=== PATIENT | male | born 1950 | race Caucasian/White ===

== ENCOUNTER → 2016-09-16 | Outpatient (CLI) | payer MEDICARE, BC ==
[~2016-09-16] MED LIST: ALLEGRA 180MG180 MG PO; AMBIEN 10MG10 MG PO; ANTI-DIARRHEAL2 MG PO; ASPIRIN 81M81 MG/TA2 PO; ASTELIN NASAL S34 ML NAS; ATIVAN 0.50.5 MG/TAB PO; BUSPAR DIVIDOSE15 MG PO; COUMADIN 1010 MG/TAB PO; COUMADIN 1MG1 MG/TAB PO; COUMADIN 77.5 MG/TAB PO; CRESTOR5 MG PO; DESYREL 50MG50 MG PO; FLOMAX 0.40.4 MG/CAP PO; GLUCOPHAGE500 MG/TAB PO; IMODIUM 2MG CAPS2 MG PO; LANTUS SOLOS100 U/ML SQ; LEVEMIR SQ; LIPITOR 10MG10 MG PO; LIPITOR20 MG PO; LOMOTIL 0.025 M1 TAB PO; LOVENOX 100100 MG/ML SQ; NORCO 325 MG-51 TAB PO; NORCO 325 MG-7.1 TAB PO; NORVASC 10MG10 MG PO; PRINIVIL10 MG PO; PROGRAF 1MG1 MG PO; PROZAC 20MG20 MG PO; ROBITUSSIN100 MG/5 M PO; ROXICODONE 55 MG/TAB PO; TOPROL XL 50MG50 MG PO; VIIBRYD40 MG PO; WELLBUTRIN 75MG75 MG PO; ZOLOFT 100MG100 MG PO; norvasc; toprol
== END ==
LOC: BHSO 13:05
DX: F33.42 Major depressive disorder, recurrent, in full remission (principal)

== ENCOUNTER → 2016-10-01 10:01 | Outpatient (RCR) | payer MEDICARE, BC | END | disposition home or self-care (01) | LOC: WSPT 10:00 | DX: M48.06 Spinal stenosis, lumbar region (principal); M75.121 Complete rotator cuff tear or rupture of right shoulder, not specified as traumatic ==

== ENCOUNTER → 2016-11-11 | Outpatient (CLI) | payer MEDICARE, BC | LOC: BHSO 10:47 | DX: F33.41 Major depressive disorder, recurrent, in partial remission (principal) ==

== ENCOUNTER 2016-12-15 16:15 | Outpatient (RCR) | payer MEDICARE, BC | END 2016-12-16 | disposition home or self-care (01) | LOC: WSPT | DX: M48.05 Spinal stenosis, thoracolumbar region (principal) | CPT/HCPCS: G8978-GP; G8979-GP; G8984-GP; G8985-GP ==

== ENCOUNTER → 2017-01-11 | Outpatient (CLI) | payer MEDICARE, BC | LOC: BHSO 10:50 | DX: F33.42 Major depressive disorder, recurrent, in full remission (principal) ==

== ENCOUNTER 2017-01-26 10:00 | Outpatient (RCR) | payer MEDICARE, BC | END 2017-01-29 10:55 | disposition home or self-care (01) | LOC: WSPT 10:00 | DX: M75.121 Complete rotator cuff tear or rupture of right shoulder, not specified as traumatic (principal) | CPT/HCPCS: G8978-GP; G8979-GP; G8980-GP ==

== ENCOUNTER → 2017-04-12 | Outpatient (CLI) | payer MEDICARE, BC | LOC: BHSO 10:00 | DX: F33.42 Major depressive disorder, recurrent, in full remission (principal) ==

== ENCOUNTER → 2017-07-12 | Outpatient (CLI) | payer MEDICARE, BC | LOC: BHSO 10:45 | DX: F41.1 Generalized anxiety disorder (principal) ==

== ENCOUNTER 2018-01-06 22:06 | Emergency (ER) | payer MEDICARE, BC ==
[~2018-01-06] VITALS: Ht 175.3 cm; Wt 95.5 kg
[2018-01-06 22:15] VITALS: BP 154/86; TEMP 98.2
[2018-01-06] MEDS ORDERED: COUMADIN 5MG5 MG/TAB PO (23:03)
[2018-01-06] MEDS ORDERED: NICODERM C21 MG/PATC TD (23:04)
[2018-01-06] MEDS ORDERED: ASPIRIN 81M81 MG/TA2 PO (23:04)
[2018-01-06] MEDS ORDERED: COZAAR 50MG50 MG/TAB PO (23:04)
[2018-01-06] MEDS ORDERED: MULTI VITAMINS1 TAB PO (23:05)
[2018-01-07] MEDS ORDERED: CEPHALEXIN500 M1 PO (01:19)
[2018-01-07 01:38] VITALS: PULSE 84
== END 2018-01-07 01:39 | disposition home or self-care (01) ==
LOC: COL.ER 22:06
DX: S60.451A Superficial foreign body of left index finger, initial encounter (principal); E11.9 Type 2 diabetes mellitus without complications; I10 Essential (primary) hypertension; I25.10 Atherosclerotic heart disease of native coronary artery without angina pectoris; F17.210 Nicotine dependence, cigarettes, uncomplicated; Z23 Encounter for immunization; Z94.4 Liver transplant status; Z79.4 Long term (current) use of insulin; Z79.01 Long term (current) use of anticoagulants; Z79.82 Long term (current) use of aspirin; W45.8XXA Other foreign body or object entering through skin, initial encounter; Y92.89 Other specified places as the place of occurrence of the external cause

== ENCOUNTER → 2018-01-20 | Outpatient (CLI) | payer MEDICARE, BC ==
[~2018-01-20] MED LIST changes: +CEPHALEXIN500 M1 PO; +COUMADIN 5MG5 MG/TAB PO; +COZAAR 50MG50 MG/TAB PO; +MULTI VITAMINS1 TAB PO; +NICODERM C21 MG/PATC TD
== END ==
LOC: BHSO 11:28
DX: F41.1 Generalized anxiety disorder (principal)
CPT/HCPCS: G0463

== ENCOUNTER → 2018-05-12 | Outpatient (CLI) | payer MEDICARE, BC ==
[~2018-05-12] MED LIST changes: +NICODERM C14 MG/PATC TD; -NICODERM C21 MG/PATC TD
== END ==
LOC: SUN.DIA 10:19
DX: E11.9 Type 2 diabetes mellitus without complications (principal); E78.5 Hyperlipidemia, unspecified; I10 Essential (primary) hypertension; F17.210 Nicotine dependence, cigarettes, uncomplicated; Z79.4 Long term (current) use of insulin
CPT/HCPCS: G0108

== ENCOUNTER → 2018-07-13 | Outpatient (CLI) | payer MEDICARE, BC | LOC: BHSO 11:25 | DX: F41.1 Generalized anxiety disorder (principal) | CPT/HCPCS: G0463 ==

== ENCOUNTER → 2018-09-06 | Outpatient (CLI) | payer MEDICARE, BC | LOC: COL.RAD 13:22 | DX: J43.9 Emphysema, unspecified (principal); R91.1 Solitary pulmonary nodule; Z87.891 Personal history of nicotine dependence; Z95.2 Presence of prosthetic heart valve ==

== ENCOUNTER → 2018-11-22 | Outpatient (CLI) | payer MEDICARE, BC | LOC: SUN.DIA 11-16 10:41 | DX: E11.9 Type 2 diabetes mellitus without complications (principal); Z79.4 Long term (current) use of insulin; E78.5 Hyperlipidemia, unspecified; I10 Essential (primary) hypertension; F17.210 Nicotine dependence, cigarettes, uncomplicated | CPT/HCPCS: G0270 ==

== ENCOUNTER → 2019-01-10 | Outpatient (CLI) | payer MEDICARE, BC | LOC: BHSO 11:05 | DX: F41.1 Generalized anxiety disorder (principal) | CPT/HCPCS: G0463 ==

== ENCOUNTER 2019-05-17 13:30 | Outpatient (RCR) | payer MEDICARE, BC | END 2019-06-07 13:28 | disposition home or self-care (01) | LOC: WSPT 13:30 | DX: M75.101 Unspecified rotator cuff tear or rupture of right shoulder, not specified as traumatic (principal) | CPT/HCPCS: G0283-GP ==

== ENCOUNTER → 2019-05-23 | Outpatient (CLI) | payer MEDICARE, BC | LOC: DIA.ED 12:56 | DX: E11.9 Type 2 diabetes mellitus without complications (principal); E78.5 Hyperlipidemia, unspecified; I10 Essential (primary) hypertension; Z79.4 Long term (current) use of insulin | CPT/HCPCS: G0270 ==

== ENCOUNTER → 2019-05-24 | Outpatient (CLI) | payer MEDICARE, BC | LOC: MHCPAIN 14:14 | DX: G89.29 Other chronic pain (principal); M47.812 Spondylosis without myelopathy or radiculopathy, cervical region; R51 Headache; M54.81 Occipital neuralgia | CPT/HCPCS: G0463 ==

== ENCOUNTER → 2019-06-07 | Outpatient (CLI) | payer MEDICARE, BC | LOC: MHCPAIN 10:15 | DX: M54.81 Occipital neuralgia (principal) | CPT/HCPCS: J1040 ==

== ENCOUNTER → 2019-07-12 | Outpatient (CLI) | payer MEDICARE, BC | LOC: BHSO 13:24 | DX: F41.1 Generalized anxiety disorder (principal) | CPT/HCPCS: G0463 ==

== ENCOUNTER 2020-09-25 18:52 | Emergency (ER) | payer MEDICARE, BC ==
[~2020-09-25] VITALS: Ht 177.8 cm; Wt 90.9 kg
[2020-09-25 19:05] VITALS: TEMP 97.1
[2020-09-25 20:30] LABS: BASO % 0.2 % (0.0-2.0); EOS % 0.3 % (0-4.0); GRAN # 10.7 (1.4-6.5); GRAN % 82.6 % (42.2-75.2); HEMOGLOBIN 14.9 g/dl (13.5-18.0); LYMPH # 1.5 (1.2-3.4); LYMPH % 11.3 % (20.0-51.0); MEAN CELL VOLUME 93 fl (80.0-100.0); MEAN CORPUSCULAR HEMOGLOBIN 31 pg (27.0-31.0); MEAN CORPUSCULAR HGB CONC 34 g/dl (33.0-37.0); MEAN PLATELET VOLUME 9.7 fl (7.4-10.4); MONO # 0.7 (0.1-0.6); MONO % 5.1 % (1.7-9.3); PLATELET COUNT 176 K/mm3 (130-400); RED BLOOD COUNT 4.74 M/mm3 (4.20-5.60); REDCELL DISTRIBUTION WIDTH-CV 14.4 % (11.5-14.5)
[2020-09-25 20:57] LABS: ALBUMIN 4.5 gm/dL (3.5-5.0); BILIRUBIN,TOTAL 0.8 mg/dL (0.0-1.0); CALCIUM 9.3 mg/dL (8.4-10.2); CREATININE, serum 1.41 (0.66-1.25); POTASSIUM 4.2 mmol/L (3.4-5.0); TOTAL PROTEIN 7.5 gm/dL (6.4-8.2)
[2020-09-25 21:09] LABS: TROPONIN-I 0.026 ng/mL (0.000-0.035)
[2020-09-25] MEDS ORDERED: PERCOCET 325 MG1 TA2 PO (23:06)
[2020-09-25 23:29] VITALS: BP 191/93; PULSE 60
== END 2020-09-25 23:45 | disposition home or self-care (01) ==
LOC: COL.ER 18:52
PROVIDERS: Emergency Medicine
DX: M25.511 Pain in right shoulder (principal); I10 Essential (primary) hypertension; E11.9 Type 2 diabetes mellitus without complications; E78.5 Hyperlipidemia, unspecified; I25.10 Atherosclerotic heart disease of native coronary artery without angina pectoris; Z95.1 Presence of aortocoronary bypass graft; Z90.89 Acquired absence of other organs; Z95.4 Presence of other heart-valve replacement; Z79.01 Long term (current) use of anticoagulants; Z79.82 Long term (current) use of aspirin; Z79.4 Long term (current) use of insulin
CPT/HCPCS: J2270; J2405; J3360; J7030

== ENCOUNTER 2020-12-04 10:31 | Inpatient (IN) | payer MEDICARE, BC ==
[2020-12-04] VITALS (183 sets, daily range): BP systolic 112; BP diastolic 49; PULSE 90; TEMP 99.8; O2SAT 88–99
[~2020-12-04] VITALS: Ht 177.8 cm; Wt 95.8 kg
[~2020-12-04 10:31] MED LIST changes: +PERCOCET 325 MG1 TA2 PO
[2020-12-04 11:21] LABS: BASO % 0.7 % (0.0-2.0); EOS # 0.1 (0.0-0.7); EOS % 2.2 % (0-4.0); GRAN # 4.4 (1.4-6.5); GRAN % 75.6 % (42.2-75.2); LYMPH # 0.7 (1.2-3.4); LYMPH % 12.3 % (20.0-51.0); MEAN CELL VOLUME 96 fl (80.0-100.0); MEAN CORPUSCULAR HGB CONC 32 g/dl (33.0-37.0); MEAN PLATELET VOLUME 9.3 fl (7.4-10.4); MONO # 0.5 (0.1-0.6); MONO % 8.9 % (1.7-9.3); PLATELET COUNT 163 K/mm3 (130-400); RED BLOOD COUNT 2.46 M/mm3 (4.20-5.60); REDCELL DISTRIBUTION WIDTH-CV 13.7 % (11.5-14.5)
[2020-12-04 11:22] LABS: HEMATOCRIT 23.7 % (42.0-52.0); HEMOGLOBIN 7.5 g/dl (13.5-18.0); MEAN CORPUSCULAR HEMOGLOBIN 30 pg (27.0-31.0)
[2020-12-04 11:30] LABS: INR 2.7 (0.8-3.0); PROTHROMBIN TIME 30.4 SECONDS (9.7-12.8)
[2020-12-04 11:33] LABS: ALBUMIN 3.3 gm/dL (3.5-5.0); CALCIUM 8.3 mg/dL (8.4-10.2); CREATININE, serum 1.17 (0.66-1.25); PARTIAL THROMBOPLASTIN TIME 38.5 SECONDS (26.0-37.0); POTASSIUM 3.8 mmol/L (3.4-5.0); TOTAL PROTEIN 6.2 gm/dL (6.4-8.2)
[2020-12-04 11:49] LABS: TROPONIN-I 0.08 ng/mL (0.000-0.035)
[2020-12-04] MEDS ORDERED: ROXICODONE 55 MG/TAB PO (15:38)
[2020-12-04] MEDS ORDERED: PROTONIX 40MG T40 MG PO (15:38)
[2020-12-04] MEDS ORDERED: DESYREL 100MG100 MG PO (15:38)
[2020-12-04] MEDS ORDERED: LEXAPRO 10MG10 MG PO (15:39)
[2020-12-04] MEDS ORDERED: CRESTOR 10MG10 MG PO (15:39)
[2020-12-04] MEDS ORDERED: LOMOTIL 0.025 M1 TAB PO (15:40)
--- NOTE | 2020-12-04 17:30 | NUR ---
ASSUMED CARE AT THIS TIME FROM JASEN SILVA.
[2020-12-04 17:48] LABS: MAGNESIUM 1.7 mg/dL (1.6-2.3)
[2020-12-04 17:52] LABS: IRON,SERUM 19 ug/dL (35-150)
[2020-12-04 18:01] LABS: TOTAL IRON BINDING CAPACITY 246 ug/dL (261-462)
[2020-12-04 18:19] LABS: TSH w REFLEX 0.504 uIU/mL (0.465-4.680)
--- NOTE | 2020-12-04 18:20 | NUR ---
PAGED DR VERNON TO NOTIFY OF TROPONIN LEVEL AND DISCUSS AMIO GTT ORDERS. WAITING FOR CALL BACK.
--- NOTE | 2020-12-04 18:40 | NUR ---
NOTIFIED RICARDO DUNCAN OF TROPONIN TREND, ASKED ABOUT AMIO GTT. PHYSICIAN STATES TO KEEP AMIO GTT AT 1MG/MIN UNTIL CARDIOLOGY CALLS BACK AND MAYBE SAYS OTHERWISE. ALSO DISCUSSED WITH PROVIDER ABOUT PRBC ORDERED. LAB CALLED AND THEY DO NOT HAVE IRRADIATED ON HAND AND IF THEY NEED THE BLOOD NOW OR IF IT CAN BE TOMORROW MORNING. PHYSICIAN STATES NEED SOON POSSIBLE BECAUSE PT'S HR RYTHYM MAY BE RELATED TO LOW HGB. LAB NOTIFIED. PT AND UPDATED ON POC.
--- NOTE | 2020-12-04 19:56 | NUR ---
Nayeli gtt decreased per verbal order from Dr. Ventura
--- NOTE | 2020-12-04 20:40 | NUR ---
Assessment complete and charted. Right arm in brace. Reports pain. Given PRN oxycodone. Denies other needs. Call light in reach.
[2020-12-05] VITALS (340 sets, daily range): BP systolic 98–150; BP diastolic 40–85; PULSE 67–101; TEMP 98–99.6; O2SAT 80–100
--- NOTE | 2020-12-05 | NUR ---
Assessment complete and charted. Denies needs at this time. Call light in reach.
--- NOTE | 2020-12-05 00:15 | NUR ---
Patient temp 99.6. Clarified start of blood with Hanna SILVA, okay with starting blood.
--- NOTE | 2020-12-05 00:27 | NUR ---
Blood transfusion started at this time.
--- NOTE | 2020-12-05 02:50 | NUR ---
Blood transfusion ended at this time. Per Hanna SILVA draw H&H in 1 hour
--- NOTE | 2020-12-05 03:00 | NUR ---
Blood transfusion rates: started transfusion at 60ml/hr- remained at bedside for 15 min 0045: 90 ml/hr 0100: 110ml/hr 0130: 125ml/hr and for rest of transfusion
--- NOTE | 2020-12-05 04:11 | NUR ---
Assessment complete and charted. Given PRN oxycodone for pain at this time. Denies other needs. Call light in reach.
[2020-12-05 04:15] LABS: HEMATOCRIT 21.6 % (42.0-52.0); HEMOGLOBIN 7.1 g/dl (13.5-18.0)
[2020-12-05 05:44] LABS: HEMATOCRIT 19.5 % (42.0-52.0); HEMOGLOBIN 6.3 g/dl (13.5-18.0)
[2020-12-05 06:25] LABS: BASO # 0.1 (0.0-0.2); BASO % 0.8 % (0.0-2.0); EOS # 0.2 (0.0-0.7); EOS % 3.7 % (0-4.0); GRAN # 4.4 (1.4-6.5); GRAN % 71.1 % (42.2-75.2); LYMPH % 15.4 % (20.0-51.0); MEAN CELL VOLUME 93 fl (80.0-100.0); MEAN CORPUSCULAR HGB CONC 32 g/dl (33.0-37.0); MEAN PLATELET VOLUME 9.4 fl (7.4-10.4); MONO # 0.5 (0.1-0.6); MONO % 8.5 % (1.7-9.3); PLATELET COUNT 167 K/mm3 (130-400); RED BLOOD COUNT 2.36 M/mm3 (4.20-5.60); REDCELL DISTRIBUTION WIDTH-CV 16.1 % (11.5-14.5)
[2020-12-05 06:32] LABS: HEMATOCRIT 21.9 % (42.0-52.0); MEAN CORPUSCULAR HEMOGLOBIN 30 pg (27.0-31.0)
--- NOTE | 2020-12-05 06:32 | NUR ---
Patient required oxycodone for pain control during night. Remains on amio gtt. Received 1 unit of PRBC during night. Another unit ordered. Resting in bed this Am. call light in reach.
[2020-12-05 06:38] LABS: CALCIUM 7.9 mg/dL (8.4-10.2); CREATININE, serum 1.08 (0.66-1.25); POTASSIUM 3.6 mmol/L (3.4-5.0)
[2020-12-05 06:42] LABS: INR 2.7 (0.8-3.0); PROTHROMBIN TIME 30.8 SECONDS (9.7-12.8)
[2020-12-05 06:51] LABS: TROPONIN-I 0.054 ng/mL (0.000-0.035)
--- NOTE | 2020-12-05 07:00 | NUR ---
PT RESTING IN BED. PT'S VSS. PT HAS AMIO DRIP AT 0.5MG/HR. WILL CONTINUE TO MONITOR.
--- NOTE | 2020-12-05 07:00 | NUR ---
PT RESTING IN BED. PTS VSS. PT HAS AMIO DRIP AT 0.5MG/HR. WILL CONTINUE TO MONITOR.
[2020-12-05] MEDS ORDERED: PROGRAF 1MG1 MG PO (09:35)
[2020-12-05] MEDS ORDERED: COUMADIN 5MG5 MG/TAB PO (09:37)
--- NOTE | 2020-12-05 09:46 | NUR ---
Plan is to return home with support from spouse. SW met with patient in room and with Matt . Alternate contact is Dtr in [facility] Fan [facility] . reports that the PCP is Dr. Griggs, indicated that the patient works with other specialist at [facility], Dr. Zhao for Cardio. Dr. Sloane Rahman, Dr. Jules, Dr. Sauer, and locally Dr. Serrano. Patients preferred pharmacy is [facility]. Patient obtains medications without difficulty. Patient reports that prior to this he was independent and hoping to work back up to the status. Patient denies any use of DME other than arm and shoulder sling. Patient shares that he had advanced directives and gave a copy when arrived. is DPOA. will transport home. Declines the use of [facility]. WIll continue to follow for any care plan changes.
--- NOTE | 2020-12-05 10:51 | NUR ---
PT DESATS TO 85 WHILE SLEEPING BUT DOES RETURN TO 94. PT PLACED ON 2L NC WHILE SLEEPING
--- NOTE | 2020-12-05 15:58 | NUR ---
1540-PRABHU RN NOTIFIED OF BLOOD COMPLETION. WILL BRING PT UP TO ROOM 319. 1550- PT WHEELED UP TO ROOM 319. PT STOOD AND TRANSFERED TO BED. PT ORIENTED TO ROOM AND FLOOR. CALL LIGHT AND PHONE GIVEN TO PT. PT INSTRUCTED TO CALL WITH ALL NEEDS AND NOT TO GET UP WITHOUT ASSISTANCE. PRABHU [employer] STUDENT MARIBEL NOTIFIED OF PTS ARRIVAL.
--- NOTE | 2020-12-05 17:00 | NUR ---
Patient arrived to Medical floor room 319 around this time, alert/oriented, vital sign stable, pain rated 5 in right shoulder/ treating with Oxycodone PRN, arm in sling/ brusing noted, heart RRR/SR on tele, present at bedside, denies needs
[2020-12-05 17:59] LABS: HEMATOCRIT 25.2 % (42.0-52.0); HEMOGLOBIN 8.2 g/dl (13.5-18.0)
--- NOTE | 2020-12-05 18:56 | NUR ---
Received report from Michael. Patient awake in bed, at bedside. He is waiting for his dinner tray. No other needs at this time.
--- NOTE | 2020-12-05 21:00 | NUR ---
Assesment done. Patient is alert and oriented. He has right arm sling. Right shoulder has ecchymosis and surgical site is covered with dressing, CDI. PICC line flushed and with blood return. He is on room air. He reports pain on his shoulder with pain score of 6/10. Oxycodone given.
[2020-12-06 00:17] VITALS: BP 142/54; PULSE 70; TEMP 98.7
[2020-12-06 05:00] VITALS: BP 156/53; PULSE 71; TEMP 98.7
[2020-12-06 06:01] LABS: BASO % 0.5 % (0.0-2.0); EOS # 0.2 (0.0-0.7); EOS % 3.6 % (0-4.0); GRAN # 4.7 (1.4-6.5); GRAN % 71.9 % (42.2-75.2); LYMPH % 15.2 % (20.0-51.0); MEAN CELL VOLUME 93 fl (80.0-100.0); MEAN CORPUSCULAR HGB CONC 33 g/dl (33.0-37.0); MEAN PLATELET VOLUME 9.6 fl (7.4-10.4); MONO # 0.5 (0.1-0.6); PLATELET COUNT 193 K/mm3 (130-400); RED BLOOD COUNT 2.67 M/mm3 (4.20-5.60)
[2020-12-06 06:08] LABS: HEMATOCRIT 24.9 % (42.0-52.0); HEMOGLOBIN 8.2 g/dl (13.5-18.0); MEAN CORPUSCULAR HEMOGLOBIN 31 pg (27.0-31.0)
[2020-12-06 06:09] LABS: CALCIUM 7.9 mg/dL (8.4-10.2); CREATININE, serum 1.12 (0.66-1.25); POTASSIUM 4.1 mmol/L (3.4-5.0)
--- NOTE | 2020-12-06 06:28 | NUR ---
Patient still with shoulder pain with pain score of 4-6/10. Oxycodone given. Latest hemoglobin is 8.2
[2020-12-06 07:58] LABS: INR 2.1 (0.8-3.0)
[2020-12-06 07:59] VITALS: BP 151/78; PULSE 81; TEMP 98.1
--- NOTE | 2020-12-06 08:56 | NUR ---
Patient alert and oriented, answers questions appropriately. See assessment. Lungs CTA, respers even and unlabored. No c/o SOA at rest or with exertion. Oxygen at 1l/nc. RUE in immobilizer per previous RTS reversal. Dressing to RUE with scant amount of drainage noted, redness and eccymosis noted around dressing, no warmth noted. Radial pulses palpable, no numbness or tingling, hand local company hazmat driver equal. No c/o at this time.
[2020-12-06] MEDS ORDERED: FERROUS SU325 MG/TAB PO (09:41)
[2020-12-06] MEDS ORDERED: COUMADIN 5MG5 MG/TAB PO (09:41)
--- NOTE | 2020-12-06 09:49 | NUR ---
Facial Operator attended clinical rounds with the team. The patient's son is present. PT is recommending OP PT. Hospitalist discussed this option. The patient reports that [facility] physician has advised him to hold off on OP PT. The patient will await [facility] to give OP PT order.
[2020-12-06] MEDS ORDERED: PACERONE400 MG PO (10:17)
[2020-12-06 13:18] VITALS: BP 145/77; PULSE 71; TEMP 99.6
--- NOTE | 2020-12-06 13:33 | NUR ---
Discharge instructions reviewed with patient and spouse, verbalized understanding. Discharged via wheelchair to auto/home with spouse at 1330. Discharged with PICC in place per Drs order, planned blood transfusion in a.m.
--- NOTE | 2020-12-06 14:05 | NUR ---
Primary nurse was assisted with [phone] patient care by [employer] student Osmar Summers and [employer] instructor Savana Evans MSN, RN.
== END 2020-12-06 13:30 | disposition home or self-care (01) | DRG 281 ==
LOC: COL.ER 10:31 → ICU 14:39 → MEDICAL 12-05 16:34
PROVIDERS: Family Medicine; Physician Assistant; ADMIT Hospitalist
PROC: 02HV33Z Insertion of Infusion Device into Superior Vena Cava, Percutaneous Approach (ICD-10-PCS; principal; 2020-12-04)
DX: I48.0 Paroxysmal atrial fibrillation (principal); I21.A1 Myocardial infarction type 2; I50.32 Chronic diastolic (congestive) heart failure; Z94.4 Liver transplant status; I25.10 Atherosclerotic heart disease of native coronary artery without angina pectoris; D50.9 Iron deficiency anemia, unspecified; Z95.2 Presence of prosthetic heart valve; I11.0 Hypertensive heart disease with heart failure; E78.5 Hyperlipidemia, unspecified; J44.9 Chronic obstructive pulmonary disease, unspecified; N40.0 Benign prostatic hyperplasia without lower urinary tract symptoms; E11.9 Type 2 diabetes mellitus without complications; F32.9 Major depressive disorder, single episode, unspecified; K21.9 Gastro-esophageal reflux disease without esophagitis; G47.00 Insomnia, unspecified; Z96.611 Presence of right artificial shoulder joint; Z88.6 Allergy status to analgesic agent; Z88.8 Allergy status to other drugs, medicaments and biological substances; Z85.828 Personal history of other malignant neoplasm of skin; Z90.49 Acquired absence of other specified parts of digestive tract; Z79.82 Long term (current) use of aspirin; Z79.01 Long term (current) use of anticoagulants; Z79.4 Long term (current) use of insulin; Z87.891 Personal history of nicotine dependence
CPT/HCPCS: 99223-AI; 99232-AI; 99239; C1751; J0282; J1815; J2270; J7060; J7120; J7507; P9040; Q9967

== ENCOUNTER 2020-12-07 12:46 | Outpatient (RCR) | payer MEDICARE, BC ==
[~2020-12-07] VITALS: Ht 177.8 cm; Wt 87.1 kg
[~2020-12-07 12:46] MED LIST changes: +CRESTOR 10MG10 MG PO; +DESYREL 100MG100 MG PO; +FERROUS SU325 MG/TAB PO; +LEXAPRO 10MG10 MG PO; +PACERONE400 MG PO; +PROTONIX 40MG T40 MG PO
[2020-12-07 14:14] VITALS: BP 125/60; PULSE 65; TEMP 98.2
[2020-12-07 14:45] VITALS: BP 125/60; PULSE 65; TEMP 98.2
[2020-12-07 15:05] VITALS: BP 149/57; PULSE 63; TEMP 98.6
[2020-12-07 15:58] VITALS: BP 137/89; PULSE 63
--- NOTE | 2020-12-07 16:27 | NUR ---
Patient tolerated blood transfusion well, vital signs remained stable throughout, PICC line removed prior to discharge home, leaving with , I escorted him out via wheelchair
== END 2020-12-07 16:35 | disposition home or self-care (01) ==
LOC: EUO 12:46
DX: Z01.89 Encounter for other specified special examinations (principal)
CPT/HCPCS: P9040

== ENCOUNTER 2021-09-16 14:59 | Outpatient (CLI) | payer MEDICARE, BC ==
[2021-09-16 16:15] VITALS: BP 146/70; PULSE 75; TEMP 99.1
[2021-09-16] MEDS ORDERED: COUMADIN 5MG5 MG/TAB PO (16:25)
[2021-09-16 16:30] VITALS: BP 137/71; PULSE 71; TEMP 99.1
[2021-09-16 16:45] VITALS: BP 149/67; PULSE 71; TEMP 99.1
[2021-09-16 17:00] VITALS: BP 160/75; PULSE 69; TEMP 99.1
[2021-09-16 17:15] VITALS: BP 160/79; PULSE 67; TEMP 99.1
[2021-09-16 17:30] VITALS: BP 162/79; PULSE 67; TEMP 99.1
== END 2021-09-16 17:44 | disposition home or self-care (01) ==
LOC: COL.ER 14:59 → EUO 14:59 → EDSTATUS 16:20 → EUO 17:44
DX: U07.1 COVID-19 (principal); D84.9 Immunodeficiency, unspecified; J98.4 Other disorders of lung
CPT/HCPCS: M0247; Q0247

== ENCOUNTER 2021-10-12 11:01 | Emergency (ER) | payer MEDICARE, BC ==
[~2021-10-12] VITALS: Ht 175.3 cm; Wt 92.7 kg
[2021-10-12 11:11] VITALS: TEMP 98.5
[2021-10-12 11:39] LABS: BASO % 0.3 % (0.0-2.0); EOS % 0.2 % (0.0-4.0); GRAN # 9.4 K/mm3 (1.4-6.5); GRAN % 86.5 % (42.2-75.2); HEMATOCRIT 44.8 % (42.0-52.0); HEMOGLOBIN 14.5 g/dl (13.5-18.0); LYMPH # 0.8 K/mm3 (1.2-3.4); LYMPH % 7.1 % (20.0-51.0); MEAN CELL VOLUME 92 fl (80.0-100.0); MEAN CORPUSCULAR HEMOGLOBIN 30 pg (27-31); MEAN CORPUSCULAR HGB CONC 32 g/dl (33.0-37.0); MONO # 0.6 K/mm3 (0.1-0.6); MONO % 5.6 % (1.7-9.3); PLATELET COUNT 141 K/mm3 (130-400); RED BLOOD COUNT 4.88 M/mm3 (4.20-5.60); REDCELL DISTRIBUTION WIDTH-CV 13.9 % (11.5-14.5)
[2021-10-12] MEDS ORDERED: [UNRECOGNIZED DRUG - CODE] (11:45)
[2021-10-12] MEDS ORDERED: CIALIS2.5 MG PO (11:46)
[2021-10-12 11:58] LABS: ALBUMIN 4.2 gm/dL (3.4-4.8); BILIRUBIN,TOTAL 1.1 mg/dL (0.2-1.2); CALCIUM 9.2 mg/dL (8.4-10.2); CREATININE, serum 1.45 mg/dL (0.72-1.25); POTASSIUM 4.4 mmol/L (3.5-4.5); TOTAL PROTEIN 7.3 gm/dL (6.2-8.1)
[2021-10-12] MEDS ORDERED: FLEXERIL 1010 MG/TAB PO (12:51)
[2021-10-12] MEDS ORDERED: ROXICODONE 55 MG/TAB PO (12:51)
[2021-10-12 13:30] VITALS: BP 184/86; PULSE 67
== END 2021-10-12 13:53 | disposition home or self-care (01) ==
LOC: COL.ER 11:01
PROVIDERS: Student in an Organized Health Care Education/Training Program
DX: M26.601 Right temporomandibular joint disorder, unspecified (principal); I48.0 Paroxysmal atrial fibrillation; I25.10 Atherosclerotic heart disease of native coronary artery without angina pectoris; E78.5 Hyperlipidemia, unspecified; J44.9 Chronic obstructive pulmonary disease, unspecified; N40.0 Benign prostatic hyperplasia without lower urinary tract symptoms; E11.9 Type 2 diabetes mellitus without complications; I11.0 Hypertensive heart disease with heart failure; I50.33 Acute on chronic diastolic (congestive) heart failure; F32.A Depression, unspecified; K21.9 Gastro-esophageal reflux disease without esophagitis; Z79.899 Other long term (current) drug therapy; Z79.4 Long term (current) use of insulin; Z79.82 Long term (current) use of aspirin; Z79.01 Long term (current) use of anticoagulants
CPT/HCPCS: J2270; J3360; Q9967

== ENCOUNTER 2022-04-07 20:56 | Emergency (ER) | payer MEDICARE, BC ==
[~2022-04-07] VITALS: Ht 175.3 cm; Wt 90.9 kg
[~2022-04-07 20:56] MED LIST changes: +CIALIS2.5 MG PO; +FLEXERIL 1010 MG/TAB PO; +[UNRECOGNIZED DRUG - CODE]
[2022-04-07 23:46] VITALS: BP 149/73; PULSE 70; TEMP 98.6
== END 2022-04-07 23:46 | disposition home or self-care (01) ==
LOC: COL.ER 20:56
DX: S43.002A Unspecified subluxation of left shoulder joint, initial encounter (principal); Z88.5 Allergy status to narcotic agent; X58.XXXA Exposure to other specified factors, initial encounter
CPT/HCPCS: J2270

== ENCOUNTER 2022-04-13 01:59 | Inpatient (IN) | payer MEDICARE, BC ==
[~2022-04-13] VITALS: Wt 90.4 kg
[2022-04-13 02:42] LABS: HEMOGLOBIN 10.4 g/dl (13.5-18.0); MEAN CELL VOLUME 90 fl (80.0-100.0); MEAN CORPUSCULAR HEMOGLOBIN 30 pg (27-31); MEAN CORPUSCULAR HGB CONC 33 g/dl (33.0-37.0); MEAN PLATELET VOLUME 9.8 fl (7.4-10.4); PLATELET COUNT 159 K/mm3 (130-400); RED BLOOD COUNT 3.44 M/mm3 (4.20-5.60); REDCELL DISTRIBUTION WIDTH-CV 14.7 % (11.5-14.5)
[2022-04-13 02:44] LABS: INR 1.9 (0.8-3.0); PROTHROMBIN TIME 22.4 SECONDS (9.7-12.8)
[2022-04-13 02:54] LABS: LACTIC ACID 1.3 mmol/L (0.5-2.0)
[2022-04-13 02:59] LABS: ALBUMIN 2.8 gm/dL (3.4-4.8); BILIRUBIN,TOTAL 1.2 mg/dL (0.2-1.2); CALCIUM 8.4 mg/dL (8.4-10.2); CREATININE, serum 1.36 mg/dL (0.72-1.25); POTASSIUM 4.3 mmol/L (3.5-4.5); TOTAL PROTEIN 6.4 gm/dL (6.2-8.1)
[2022-04-13 03:04] LABS: HEMATOCRIT 31.1 % (42.0-52.0)
[2022-04-13 03:38] LABS: BAND 2 % (0-10); LYMPHOCYTE 4 % (20.0-51.0); NEUTROPHILS 90 % (42.0-75.2)
[2022-04-13 03:39] LABS: PLATELET ESTIMATE NORMAL (NORMAL)
[2022-04-13 04:12] LABS: COLLECTION METHOD CLEAN CATCH
[2022-04-13 04:26] LABS: PH 5.5 (5.0-8.5); URINE APPEARANCE Clear (CLEAR/HAZY); URINE BLOOD Negative (NEGATIVE); URINE COLOR Yellow (YELLOW); URINE GLUCOSE Negative (NEGATIVE); URINE KETONE Negative (NEGATIVE); URINE NITRATE Negative (NEGATIVE); URINE PROTEIN(semi-quant) 2+ (NEGATIVE)
[2022-04-13 04:27] LABS: MUCOUS Present (NOT PRESENT); SQUAMOUS EPITHELIAL None Seen /hpf (0-10); URINE BACTERIA None Seen /hpf (NONE SEEN); URINE RBC 0-2 /hpf (0-2)
[2022-04-13] MEDS ORDERED: NORVASC 10MG10 MG PO (04:58)
[2022-04-13] MEDS ORDERED: COREG 25MG25 MG/TAB PO (04:58)
[2022-04-13] MEDS ORDERED: HYDRALAZINE HC100 MG PO (04:59)
[2022-04-13] MEDS ORDERED: PREDNISONE20 MG PO (05:00)
[2022-04-13] MEDS ORDERED: IMDUR 60MG60 MG/TAB PO (05:00)
[2022-04-13] MEDS ORDERED: BACTRIM DS 8001 TAB PO (05:01)
[2022-04-13] MEDS ORDERED: NOVOLOG 100U100 U/M1 SQ (05:03)
[2022-04-13] MEDS ORDERED: LOVENOX 100100 MG/ML (05:04)
[2022-04-13] MEDS ORDERED: XIFAXAN550 MG PO (05:05)
[2022-04-13] MEDS ORDERED: CRESTOR 10MG10 MG PO (05:06)
[2022-04-13] MEDS ORDERED: DESYREL 100MG100 MG PO (05:07)
[2022-04-13 08:04] VITALS: BP 141/57; PULSE 97; TEMP 98.9
--- NOTE | 2022-04-13 08:58 | NUR ---
Patient admitted to room 351 from ED. Medications, allergies, and pharmacy reviewed. Admission paperwork completed. Patient states that he has "slight" pain in right shoulder. VSS. Patient A&O. Patient denies any further pain, discomfort, SOA, or needs at this time. Call light in reach.
--- NOTE | 2022-04-13 09:01 | NUR ---
Vancomycin Initial Dosing Pharmacy Note Ordering provider: Iker Gage MD Indication/duration: EMPIRIC Relevant comorbidities: LIVER TRANSPLANT FAILURE LABS: WBC 14.5, SCR 1.4, CRCL ~40, TMAX 102.3 Recommendation: VANCOMYCIN 17 MG/KG Loading dose: 2 grams Maintenance dose: 1.5 grams every 24 hours Trough goal: 15-20 ug/mL. TROUGH IF CLINICALLY INDICATED
[2022-04-13 11:10] VITALS: BP 129/55; PULSE 67; TEMP 99.8
--- NOTE | 2022-04-13 11:45 | NUR ---
Pt in semifowlers, requested pain medication for left shoulder stating that his pain level is at 6/10. Warmm blanket was offered and accepted. Medications were administeredper Emar. Physician notified that pt is in medical unit. Peripheral line in left hand CDI, no redness or edema. Right forearm INT CDI, no redness or edema. Tele on. Call light within reach.
--- NOTE | 2022-04-13 11:45 | NUR ---
Pt on semi fowlers, requested pain medication for left shoulder stating that his pain level is at 6/10. Warm blanket offered and medications were administered per Emar. Physician notified that pt is in medical unit. Call light within reach.
--- NOTE | 2022-04-13 13:22 | NUR ---
adz worker met with patient to complete intake and discuss discharge plan. Patient reports that he lives at home with his Matt ([phone]) in [place]. He is independent with his ADL's and does not utilize any DME to assist with mobility. Patient has no home oxygen needs. PCP is Dr. Griggs and he utilizes [facility] pharmacy for prescriptions. Patient reports that he does have a DPOA-HC established listing his Matt. Patient has previously had a liver transplant with Dr. Garces and Dr. Pearce from [facility]. He follows them. Patient may need transfer to later in the stay pending cultures. Discharge plan: Home* posiible transfer.
[2022-04-13 15:02] VITALS: BP 119/42; PULSE 64; TEMP 99
--- NOTE | 2022-04-13 16:14 | NUR ---
Pt in semifowlers, requested pain medication for left shoulder stating that his pain level is at 6/10. Warm blanket offered and medications were administered per Emar. Physician notified that pt is in medical unit. Peripheral line in Left hand, CDI, no redness or edema, INT on right forearm CDI, no redness or edema. Call light within reach.
--- NOTE | 2022-04-13 16:21 | NUR ---
Patricia: [facility] Situation: Clerk Of [address] went by room on rounds Background: PT was resting in bed with by his side. Assessment: PT has a few medical issues hitting all at once, Clerk Of [address] prayed with Pt and his , they both appreciated the visit. Recommendation: Clerk Of [address] will follow up as needed
--- NOTE | 2022-04-13 17:32 | NUR ---
Pt reported pain level didn't improve with oral pain medication and physician was notified. Received verbal orders to add IV pain medication on emar. Charge nurse notified. Patient's at bedside. Fluids running on left hand peripheral line. Pt denies any other need or concern besides pain on left shoulder. Call light within reach.
--- NOTE | 2022-04-13 18:16 | NUR ---
PRN MORPHINE GIVEN FOR SHOULDER PAIN RATED A 6/10.
[2022-04-13 20:45] VITALS: BP 108/43; PULSE 59; TEMP 98.9
--- NOTE | 2022-04-13 23:55 | NUR ---
PT WENT WITH EMS AROUND 1755. BELONGINGS WITH HIM. NOTIFIED [facility] ACCEPTING NURSE. NOTIFIED PATIENTS .
[2022-04-16 07:25] LABS: .HISTOPLASMA ANTIGEN SERUM None Detected (())
== END 2022-04-13 23:35 | disposition short-term general hospital (02) | DRG 872 ==
LOC: COL.ER 01:59 → MEDICAL 06:32
PROVIDERS: Emergency Medicine; ADMIT Internal Medicine
DX: A41.9 Sepsis, unspecified organism (principal); Z94.4 Liver transplant status; K86.1 Other chronic pancreatitis; D84.9 Immunodeficiency, unspecified; Z95.4 Presence of other heart-valve replacement; I48.0 Paroxysmal atrial fibrillation; I10 Essential (primary) hypertension; Z20.822 Contact with and (suspected) exposure to COVID-19; E78.5 Hyperlipidemia, unspecified; J44.9 Chronic obstructive pulmonary disease, unspecified; N40.0 Benign prostatic hyperplasia without lower urinary tract symptoms; E11.9 Type 2 diabetes mellitus without complications; I71.4 Abdominal aortic aneurysm, without rupture; F32.A Depression, unspecified; F17.210 Nicotine dependence, cigarettes, uncomplicated; G47.00 Insomnia, unspecified; K21.9 Gastro-esophageal reflux disease without esophagitis; Z88.5 Allergy status to narcotic agent; Z79.01 Long term (current) use of anticoagulants; Z79.4 Long term (current) use of insulin; Z88.8 Allergy status to other drugs, medicaments and biological substances; Z79.82 Long term (current) use of aspirin; Z90.49 Acquired absence of other specified parts of digestive tract; Z23 Encounter for immunization
CPT/HCPCS: J1650; J1815; J2270; J2543; J3370; J7030; J7040; J7120; J7507; J7512; Q9967

== ENCOUNTER 2024-04-28 15:04 | Emergency (ER) | payer MEDICARE, BC ==
[~2024-04-28] VITALS: Ht 175.3 cm; Wt 84.1 kg
[~2024-04-28 15:04] MED LIST changes: +BACTRIM DS 8001 TAB PO; +COREG 25MG25 MG/TAB PO; +HYDRALAZINE HC100 MG PO; +IMDUR 60MG60 MG/TAB PO; +LOVENOX 100100 MG/ML; +NOVOLOG 100U100 U/M1 SQ; +PREDNISONE20 MG PO; +PREVALITE4 GM/5.5 G PO; +XIFAXAN550 MG PO; -[UNRECOGNIZED DRUG - CODE]; +[UNRECOGNIZED DRUG - CODE] PO
[2024-04-28 15:16] VITALS: TEMP 98.8
[2024-04-28 16:04] LABS: BASO # 0.1 K/mm3 (0.0-0.2); BASO % 0.7 % (0.0-2.0); EOS # 0.7 K/mm3 (0.0-0.7); EOS % 9.9 % (0.0-4.0); GRAN # 4.3 K/mm3 (1.4-6.5); GRAN % 63.8 % (42.2-75.2); HEMOGLOBIN 11.4 g/dl (13.5-18.0); LYMPH # 1.3 K/mm3 (1.2-3.4); LYMPH % 18.8 % (20.0-51.0); MEAN CELL VOLUME 92 fl (80.0-100.0); MEAN CORPUSCULAR HEMOGLOBIN 30 pg (27-31); MEAN CORPUSCULAR HGB CONC 33 g/dl (33.0-37.0); MEAN PLATELET VOLUME 9.8 fl (7.4-10.4); MONO # 0.5 K/mm3 (0.1-0.6); MONO % 6.7 % (1.7-9.3); PLATELET COUNT 152 K/mm3 (130-400); REDCELL DISTRIBUTION WIDTH-CV 17.1 % (11.5-14.5)
[2024-04-28 16:08] LABS: INR 1.6 (0.8-3.0); PROTHROMBIN TIME 17.3 SECONDS (9.7-12.8)
[2024-04-28 16:10] LABS: HEMATOCRIT 35.1 % (42.0-52.0)
[2024-04-28 16:21] LABS: ALBUMIN 3.5 g/dL (3.4-4.8); BILIRUBIN,TOTAL 0.4 mg/dL (0.2-1.2); CALCIUM 8.1 mg/dL (8.4-10.2); CREATININE, serum 2.57 mg/dL (0.72-1.25); POTASSIUM 5.5 mEq/L (3.5-4.5); TOTAL PROTEIN 6.5 g/dl (6.2-8.1)
[2024-04-28] MEDS ORDERED: NS 500 ML IV ONE (16:30)
[2024-04-28] MEDS ORDERED: Albuterol 0.083% Neb Soln 2.5 MG/3 ML UD IH ONE (17:15)
[2024-04-28 18:26] LABS: ALBUMIN 3.4 g/dL (3.4-4.8); BILIRUBIN,TOTAL 0.4 mg/dL (0.2-1.2); CREATININE, serum 2.35 mg/dL (0.72-1.25); POTASSIUM 5.3 mEq/L (3.5-4.5); TOTAL PROTEIN 6.5 g/dl (6.2-8.1)
[2024-04-28] MEDS ORDERED: ALBUTEROL0.83 MG/ML IH (18:35)
[2024-04-28] MEDS ORDERED: ALBUTEROL IH ONE (18:45)
[2024-04-28 19:00] VITALS: BP 165/76; PULSE 58
== END 2024-04-28 19:02 | disposition home or self-care (01) ==
LOC: COL.ER 15:04
PROVIDERS: Emergency Medicine
DX: N17.9 Acute kidney failure, unspecified (principal); E87.5 Hyperkalemia; Z87.891 Personal history of nicotine dependence
CPT/HCPCS: J7040

== ENCOUNTER 2024-06-10 17:36 | Emergency (ER) | payer MEDICARE, BC ==
[~2024-06-10] VITALS: Ht 175.3 cm; Wt 83.6 kg
[~2024-06-10 17:36] MED LIST changes: +ALBUTEROL0.83 MG/ML IH
[2024-06-10 17:40] VITALS: BP 170/88; TEMP 98.7
[2024-06-10] MEDS ORDERED: CEPHALEXIN500 M1 PO (18:37)
[2024-06-10 21:02] VITALS: PULSE 72
== END 2024-06-10 18:00 | disposition home or self-care (01) ==
LOC: COL.ER 17:36
DX: S51.812A Laceration without foreign body of left forearm, initial encounter (principal); Z79.01 Long term (current) use of anticoagulants; Z87.891 Personal history of nicotine dependence; W19.XXXA Unspecified fall, initial encounter

== ENCOUNTER 2024-06-16 11:17 | Emergency (ER) | payer MEDICARE, BC ==
[~2024-06-16] VITALS: Ht 175.3 cm; Wt 84.1 kg
[2024-06-16 12:07] VITALS: TEMP 97.5
[2024-06-16] MEDS ORDERED: Morphine 10 MG/ML VIAL IM ONE (14:30)
[2024-06-16 15:00] VITALS: BP 149/76; PULSE 74
== END 2024-06-16 15:00 | disposition home or self-care (01) ==
LOC: COL.ER 11:17
DX: M25.561 Pain in right knee (principal); R22.41 Localized swelling, mass and lump, right lower limb; Z79.01 Long term (current) use of anticoagulants; Z95.2 Presence of prosthetic heart valve; Z85.118 Personal history of other malignant neoplasm of bronchus and lung
CPT/HCPCS: J2270; L1846